=== PATIENT | male | born 1985 | race Caucasian/White ===

== ENCOUNTER 2024-11-25 21:36 | Emergency (ER) | payer BC, SELFPAY ==
--- OUTSIDE RECORDS SUMMARY | 2024-11-25 21:38 | XMS_ITS | Clinical Summary ---
Author Organization [facility] Address [address] [place] [address] Care Team Providers Care Software Reverse Engineer Name Role Phone Tiffany Rizvi MD Primary Care Provider [phone] [facility],non-owned Affiliates and Associated Physician Practices is amultiple site organization consisting of ambulatory clinics and hospital sitesin [place], [place], [place] and [place]. This disclosure is being madepursuant to the Care Everywhere program and may not contain all information available regarding this patient. Last updated 17.[facility] Allergies No known active allergies Medications * Be aware that medications may not be up to date on this document. Alwaysverify current medications with the patient. No known medications Family History Medical History Relation Name Comments Hypertension Father Relation Name Status Comments Father Social History Tobacco Use Types Packs/Day Years Used Date Smoking Tobacco: Former Cigarettes Smokeless Tobacco: Never Sex and Gender Information Value Date Recorded Sex Assigned at Not on file Legal Sex Male 10:21 AM CDT Gender Identity Not on file Sexual Orientation Not on file Last Filed Vital Signs Vital Sign Reading Time Taken Comments Blood Pressure 132/74 09/06/2018 9:47 AM CDT Pulse 104 09/06/2018 9:47 AM CDT Temperature 37.2 C (99 F) 09/06/2018 9:47 AM CDT Respiratory Rate 18 09/06/2018 9:47 AM CDT Oxygen Saturation 96% 09/06/2018 9:47 AM CDT Inhaled Oxygen Concentration - - Weight 86.2 kg (190 lb) 09/06/2018 9:47 AM CDT Height 172.7 cm (5' 8) 09/06/2018 9:47 AM CDT Body Mass Index 28.89 09/06/2018 9:47 AM CDT Plan of Treatment Health Maintenance Due Date Last Done Comments HIV SCREENING 2000 HEPATITIS C SCREENING 04/24/2003 DTAP/TDAP/TD VACCINES (1 - Tdap) 2004 HEPATITIS B VACCINE (1 of 3 - 19+ 3-dose series) 2004 HPV VACCINE (1 - 3-dose SCDM series) 2012 DEPRESSION SCREENING 02/24/2024 COVID-19 VACCINE (1 - 2023-2 5 season) 2024 INFLUENZA VACCINE (#1) 2024 ZOSTER VACCINE (1 of 2) 04/29/2035 HIB VACCINE Aged Out No longer eligi ble based on patient's age to complete this topic MENINGOCOCCAL (Group B) VACC INE SHARED DECISION-MAKING Aged Out No longer eligibl e based on patient's age to complete this topic MENINGOCOCCAL GROUPS A/C/Y/W VACCINE Aged Out No longer eligible b ased on patient's age to complete this topic PNEUMOCOCCAL VACCINE Aged Out No long er eligible based on patient's age to complete this topic Insurance [facility] Care Teams Software Reverse Engineer Relationship Specialty Start Date End Date Tiffany Rizvi MD [address] [place] [address] PCP - General Family Medicine 09/21/16
--- OUTSIDE RECORDS SUMMARY | 2024-11-25 21:38 | XMS_ITS | Clinical Summary ---
Author Organization [address] Address [address] [place] [id number] Care Team Providers Care Diamond Blender Name Role Phone Unknown, Notinfile Primary Care Provider Unavail able Allergies No known active allergies Medications No known medications Active Problems No known active problems Social History Tobacco Use Types Packs/Day Years Used Date Smoking Tobacco: Never Assessed Personal Safety Answer Date Recorded Getting School Help Needed Not on file 05/11 Sex and Gender Information Value Date Recorded Sex Assigned at Not on file Legal Sex Male 9:18 AM CDT Gender Identity Not on file Sexual Orientation Not on file Last Filed Vital Signs Vital Sign Reading Time Taken Comments Blood Pressure 144/90 05/12/2023 9:30 AM CDT Pulse 78 05/12/2023 9:30 AM CDT Temperature 37.1 C (98.8 F) 05/12/2023 9:30 AM CDT Respiratory Rate - - Oxygen Saturation 98% 05/12/2023 9:30 AM CDT Inhaled Oxygen Concentration - - Weight 93 kg (205 lb) 05/12/2023 9:30 AM CDT Height 172.7 cm (5' 8) 05/12/2023 9:30 AM CDT Body Mass Index 31.17 05/12/2023 9:30 AM CDT Plan of Treatment Health Maintenance Due Date Last Done Comments Depression Screening 1985 Hepatitis C Screening 1985 DTaP/Tdap/Td Vaccine (1 - Tdap) 1996 Varicella Vaccines (1 of 2 - 13+ 2-dose series) 1998 Hepatitis B Screening 04/29/2003 Regular Well Visit/Exam 18-64 04/29/2003 HPV Vaccines (1 - 3-dose SCDM series) 2012 Covid-19 Vaccine ( season) 2024 01/22/2022, 02/03/2021, 05/14/2020, Additional history exists Influenza Vaccine (#1) 2024 01/22/2022 Pneumococcal vaccine <65 Aged Out No longer eligible based on patient's age to complete this topic Insurance [employer] Care Teams Diamond Blender Relationship Specialty Start Date End Date Unknown, Notinfile PCP - General 05/12/23
[2024-11-25 21:41] VITALS: BP 155/83; PULSE 77; RESP 18; TEMP 36.6; O2SAT 97
--- NOTE | 2024-11-26 00:52 | ED_ITS ---
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 Patient does not wear glasses or contact lenses at baseline as he is status post LASIK surgery. His eye doctor is through [facility] in [place]. Injury or occurred at approximately 9:00 p.m.. He is having blurred vision. He is also having a lot of drainage, watery eye. When looking in the mirror using his left eye, he felt that he could see a scratch on the surface of his right IV he does not endorse lyric eye pain only the feeling of irritability almost like it feels like it is gritty, not quite foreign body sensation. Photophobia. No meds prior to arrival. Related Data Allergies Allergy/AdvReac Type Severity Reaction Status Date / Time No Known Allergies Allergy Verified 11/25/24 21:43 [facility] Surgical History Surgical History S/P LASIK surgery Social History Social History Social History: Has a 3yo son He smokes a few cigarettes when he is drinking. He has never been a daily smoker. Smoking packs per day: 0 Smoking cigarettes per day: 0.0 Years smoked: 0 Smoking pack-years: 0.00 Smoking status: Current some day smoker Tobacco type: cigarettes Second hand tobacco smoke exposure: Yes Alcohol intake: current Drinks per week: 30 Alcohol use details: States he drinks beer a few times per week and will have several at a time Substance use: never Substance use type: does not use Exam Narrative: GENERAL: Well-appearing, well-nourished, HEAD: Normocephalic, atraumatic. EYES: Non icteric. Increased lacrimation, clear watery discharge w/o blood or purulence PERRL Extraocular motility and alignment - normal, without entrapment/limitations External examination : Patient has obvious corneal abrasion, approximately 2mm, most appreciable at 6 and 7 o'clock position of iris on the right eye Negative Claude test on the right ENT: No epistaxis. Gross auditory acuity intact. NECK: Supple. No meningismus. CHEST: Speaking in full sentences. No respiratory distress. HEART: Regular rate and rhythm. . ABDOMEN: Soft, nondistended. EXTREMITIES: Normal range of motion. No lower extremity edema. SKIN: Warm, dry, no rash. NEURO: No focal deficits. Alert and oriented. Answering questions. Following c ommands. Normal speech without aphasia or dysarthria. PSYCH: Normal mood and affect. Course Vital Signs Vital signs: Vital Signs Temperature 97.9 F 11/25/24 21:41 Pulse Rate 77 11/25/24 21:41 Respiratory Rate 18 11/25/24 21:41 Blood Pressure 155/83 H 11/25/24 21:41 Pulse Oximetry 97 11/25/24 21:41 Oxygen Delivery Room Air 11/25/24 21:41 Temperature 97.9 F 11/25/24 21:41 Pulse Rate 77 11/25/24 21:41 Respiratory Rate 18 11/25/24 21:41 Blood Pressure 155/83 H 11/25/24 21:41 Pulse Oximetry 97 11/25/24 21:41 Oxygen Delivery Room Air 11/25/24 21:41 MDM - Eye Problem MDM Narrative Medical decision making narrative: Patient presents after 3-year-old son accidentally poked him in the eye with his finger at approximately 9:00 p.m.. Patient has subsequently had blurred vision with irritation in his right eye and increased lacrimation. In the emergency department he is afebrile with vital signs notable for hypertension. Obvious 2 mm corneal abrasion in the right eye approximately the 6:00 a.m. and 7 o'clock position of the iris. Not a high velocity injury. Tetracaine drops administered patient which provide significant relief which also helps confirm diagnosis. Patient discharged with p.o. NSAIDs, erythromycin ointment (does not wear contact lenses), additional saline eyedrops that are noted that can be placed in the Fridge for cooling effect, as well as a prescription for cyclopentolate help with pain. He is advised to follow-up in approximately 48 hours with an eye doctor. He confirms that he already has 1 through [facility] in [place]. Discussed the natural progression of injuries such as this and healing should typically occur over the next 48-72 hours. He verifies understanding and is in agreement. Otherwise stable for discharge. Differential Diagnosis Differential diagnosis: Likely corneal abrasion, conjunctivitis, acute iritis, hyphema, subconjunctival hemorrhage, corneal ulcer, ruptured globe and other (considered corneal laceration) Discharge Plan Discharge Clinical Impression: Corneal abrasion Qualifiers: Encounter type: initial encounter Laterality: right Qualified Code(s): S05.01XA - Injury of conjunctiva and corneal abrasion without foreign body, right eye, initial encounter Patient Disposition: Home Condition: Stable Instructions: Antibiotic Form, Corneal Abrasion (DC) Additional Instructions: Use the antibiotic ointment. Acetaminophen/Tylenol (maximum 4000 mg per day) is safe to take with NSAIDs (ibuprofen/Motrin) for pain relief. In particular, the NSAIDs are recommended for their anti-inflammatory effects. The cyclopentolate may also help with the pain. Also recommend purchasing nonmedicated eye drops (normal saline) and putting them in the fridge as this provides cooling effect. These typically heal in 48-72 hours; recommend following up in 48 hours with opthalmology/optometry. Patient Language: Nepali Prescriptions: New erythromycin 5 mg/gram (0.5 %) ointment 1 applic RIGHT EYE QID 5 Days Qty: 3.5 0RF ibuprofen 200 mg capsule 600 mg PO Q6H PRN (Reason: pain) Qty: 30 0RF cyclopentolate 1 % drops 1 drp RIGHT EYE Q6H Qty: 15 0RF (DME) Sensitive Eyes Plus Saline Solution See Rx Instructions .Route Qty: 355 0RF Rx Instructions: As directed Follow-up/Referrals: [facility] in [place]. [Other] Tiffany Rizvi MD [Primary Care Provider, Family Practice] Stand Alone Forms: Work/School Release IP Time of Disposition: 01:15
[2024-11-26] MEDS: ERYTHROMYCIN OPHTH OINTMENT 1 GM TUBE 1 APPLIC RIGHT EYE (01:27)
[2024-11-26] MEDS: HYDROcodone/acetaminophen (*CRX) 5-325 MG TABLET 1 TAB PO (01:28)
[2024-11-26] MEDS: FLUORESCEIN SOD 1 MG/STRIP (01:28)
[2024-11-26] MEDS: TETRACAINE HCL 0.5% OPHTH SOLN 4 ML BTL 1 DROP (01:28)
[2024-11-26] MEDS: KETOROLAC 30 MG/ML VIAL (*BKC) IM (01:28)
== END 2024-11-26 01:33 | disposition home or self-care (01) ==
PROVIDERS: Emergency Provider Student in an Organized Health Care Education/Training Program; PCP Family Medicine
DX: S05.01XA Injury of conjunctiva and corneal abrasion without foreign body, right eye, initial encounter (principal); F17.210 Nicotine dependence, cigarettes, uncomplicated; W51.XXXA Accidental striking against or bumped into by another person, initial encounter
CPT/HCPCS: 96372; 99283; A9270; J1885

== ENCOUNTER 2024-12-02 09:02 | Outpatient (CLI) | payer BC, SELFPAY ==
--- NOTE | ~2024-12-02 | XR_ITS ---
EXAMINATION: XR shoulder LT min 2V, 12/02/2024 9:08 CDT HISTORY: M25.512 - Pain in left shoulder COMPARISON: No comparisons available. Findings: No acute fracture or malalignment. No significant degenerative changes. Soft tissues unremarkable. Impression: No acute fracture or malalignment. Reviewed, dictated and finalized at location P. Impression: No acute fracture or malalignment.
== END 2024-12-02 09:03 | disposition home or self-care (01) ==
LOC: MICIMG 09:04
PROVIDERS: PCP Family Medicine; Visit Provider Student in an Organized Health Care Education/Training Program
DX: M25.512 Pain in left shoulder (principal)
CPT/HCPCS: 73030